=== PATIENT | male | born 1985 | race Caucasian/White ===

== ENCOUNTER 2021-07-07 18:37 | Emergency (ER) | payer OTHER ==
[~2021-07-07] VITALS: Ht 172.7 cm; Wt 63.0 kg
[2021-07-07 19:14] VITALS: BP 123/67
--- NOTE | 2021-07-07 19:31 | RAD ---
EXAMINATION: Left ankle radiograph. VIEWS: 3 COMPARISON: None INDICATION:36 years, Male, rolled ankle, pain and weakness. FINDINGS: No acute fracture, dislocation or subluxation. Ankle mortise and talar dome are intact. No bone erosi on or periosteal reaction. No soft tissue swelling or joint effusion. IMPRESSION: No acute osseous process. Electronically signed by: Alcides Sandoval MD (07/07/2021 7:29 PM) [facility]
--- NOTE | 2021-07-07 20:26 | PHYS DOC ---
Past History Past Surgical History: Tonsillectomy General Adult EDM: Chief Complaint: ANKLE PROBLEM HPI: HPI: Patient is a 36-year-old male who presents with left ankle pain after twisting his ankle at work today. Patient states he stepped down onto the concrete thinking it was flat, when he stepped down his ankle rolled to the side. Denies taking anything for pain. Patient still able to ambulate. Review of Systems: Review of Systems: Constitutional: Denies fever or chills Eyes: Denies change in visual acuity HENT: Denies nasal congestion or sore throat Respiratory: Denies cough or shortness of breath Cardiovascular: Denies chest pain or edema GI: Denies abdominal pain, nausea, vomiting, bloody stools or diarrhea : Denies dysuria Musculoskeletal: Left ankle pain Integument: Denies rash Neurologic: Denies headache, focal weakness or sensory changes Endocrine: Denies polyuria or polydipsia Lymphatic: Denies swollen glands Psychiatric: Denies depression or anxiety Allergies: Allergies: Allergies Coded Allergies Type Severity Reaction Last Updated Verified No Known Drug Allergies 07/07/21 No Physical Exam: PE: Constitutional: Well developed, well nourished, no acute distress, non-toxic appearance. [] HENT: Normocephalic, atraumatic, bilateral external ears normal, oropharynx moist, no oral exudates, nose normal. [] Eyes: PERRLA, EOMI, conjunctiva normal, no discharge. [] Neck: Normal range of motion, no tenderness, supple, no stridor. [] Cardiovascular:Heart rate regular rhythm, no murmur [] Lungs & Thorax: Bilateral breath sounds clear to auscultation [] Abdomen: Bowel sounds normal, soft, no tenderness, no masses, no pulsatile masses. [] Skin: Warm, dry, no erythema, no rash. [] Back: No tenderness, no CVA tenderness. [] Extremities: Left ankle tenderness, no cyanosis, no clubbing, ROM intact, no edema. [] Neurologic: Alert and oriented X 3, normal motor function, normal sensory function, no focal deficits noted. [] Psychologic: Affect normal, judgement normal, mood normal. [] Current Patient Data: Vital Signs: Vital Signs Date Time Temp Pulse Resp B/P (MAP) Pulse Ox O2 Delivery O2 Flow Rate FiO2 8/30/21 19:14 98.2 70 12 123/67 99 Room Air EKG: EKG: [] Radiology/Procedures: Radiology/Procedures: []EXAMINATION: Left ankle radiograph. VIEWS: 3 COMPARISON: None INDICATION:36 years, Male, rolled ankle, pain and weakness. FINDINGS: No acute fracture, dislocation or subluxation. Ankle mortise and talar dome are intact. No bone erosion or periosteal reaction. No soft tissue swelling or joint effusion. IMPRESSION: No acute osseous process. Electronically signed by: Alcides Sandoval MD (07/07/2021 7:29 PM) [facility] Heart Score: C/O Chest Pain: No Risk Factors: Risk Factors: DM, Current or recent (<one month) smoker, HTN, HLP, family history of CAD, obesity. Risk Scores: Score 0 - 3: 2.5% MACE over next 6 weeks - Discharge Home Score 4 - 6: 20.3% MACE over next 6 weeks - Admit for Clinical Observation Score 7 - 10: 72.7% MACE over next 6 weeks - Early Invasive Strategies Course & Med Decision Making: Course & Med Decision Making Pertinent Labs and Imaging studies reviewed. (See chart for details) [] 36-year-old male presents with left ankle pain after twisting it at work. Ankle x-ray ordered was negative for fracture. Patient denies needing anything for pain. Patient given rice instructions. Advised patient to follow-up with PCP in 1 week if pain continues. [place] wrap applied to ankle. Patient states he understands discharge instructions. Pedal pulses intact. Patient is able to ambulate on his own. Patient is hemodynamically stable on disposition. Abbey Disclaimer: Abbey Disclaimer: This electronic medical record was generated, in whole or in part, using a voice recognition dictation system. Departure Departure: Impression: Primary Impression: Injury of ankle, left Qualified Codes: S99.912A - Unspecified injury of left ankle, initial encounter Disposition: HOME / SELF CARE / HOMELESS Condition: STABLE Referrals: PCP,NO (PCP) Patient Instructions: Ankle Sprain, RICE - Routine Care for Injuries, [id number] Additional Instructions: You were seen in the emergency room for left ankle pain after rolling it today. Important you rest, use ice to area, elevate to help with swelling and pain. [place] wrap was applied. Ibuprofen and Tylenol for discomfort please follow-up with PCP or return to the ER if pain continues. EMERGENCY DEPARTMENT GENERAL DISCHARGE INSTRUCTIONS Thank you for coming to [facility] (ED) today and trusting us with you care. We trust that you had a positivie experience in our Emergency Department. If you wish to speak to the department management, you may call the director at [phone]. YOUR FOLLOW UP INSTRUCTIONS ARE FOLLOWS: 1. Do you have a private Doctor? If you do not have a private doctor, please ask for a resource list of physicians or clinics that may be able to assist you with follow up care. 2. The Emergency Physician has interpreted your x-rays. The X-Ray specialist will also review them. If there is a change in the findings, you will be notified in 48 hours when at all possible. 3. A lab test or culture has been done, your results will be reviewed and you will be notified if you need a change in treatment. ADDITIONAL INSTRUCTIONS AND INFORMATION: 1. Your care today has been supervised by a physician who is specially trained in emergency care. Many problems require more than one evaluation for a complete diagnosis and treatment. We recommend that you schedule your follow up appointment as recommended to ensure complete treatment of you illness or injury. If you are unable to obtain follow up care and continue to have a problem, or if your condition worsens, we recommend that you return to the ED. 2. We are not able to safely determine your condition over the phone nor are we able to give sound medical advice over the phone. For these safety reasons, if you call for medical advice we will ask you to come to the ED for further evaluation. 3. If you have any questions regarding these discharge instructions please call the ED at [phone]. SAFETY INFORMATION: In the interest of safety, wellness, and injury prevention; we encourage you to wear your sealbelt, if you smoke; quite smoking, and we encourage family to use a protective helmet for bicycling and other sporting events that present an increased risk for head injury. IF YOUR SYMPTOMS WORSEN OR NEW SYMPTOMS DEVELOP, OR YOU HAVE CONCERNS ABOUT YOUR CONDITION; OR IF YOUR CONDITION WORSENS WHILE YOU ARE WAITING FOR YOUR FOLLOW UP APPOINTMENT; EITHER CONTACT YOUR PRIMARY CARE DOCTOR, THE PHYSICIAN WHOSE NAME AND NUMBER YOU WERE GIVEN, OR RETURN TO THE ED IMMEDIATELY. YIMI MUNOZ APRN Jul 07, 2021 20:26
== END 2021-07-07 20:44 | disposition home or self-care (01) ==
LOC: ER 18:37
DX: S99.912A Unspecified injury of left ankle, initial encounter (principal); X50.9XXA Other and unspecified overexertion or strenuous movements or postures, initial encounter; Y93.89 Activity, other specified; Y92.89 Other specified places as the place of occurrence of the external cause; Y99.8 Other external cause status
CPT/HCPCS: 73610; 99283